=== PATIENT | male | born 1975 | race American Indian/Alaskan Native ===

== ENCOUNTER 2016-10-16 10:51 | Emergency (ER) | payer SELFPAY ==
[2016-10-16 10:51] VITALS: BMI 24.2
[2016-10-16 10:56] VITALS: BP 119/76; PULSE 84; RESP 18; TEMP 98.2; O2SAT 99
[2016-10-16] MEDS ORDERED: Naproxen 550 mg Tab PO STA (11:08)
--- NOTE | 2016-10-16 11:08 | C.PDOC ---
History Of Present Illness 41 yo male, presents with left shoulder pain he has had for "6 months". as per pt, unsure of what provoked injury. pt states had neg xr by pmd. pt states pain resolved, but has now resolved. no fevers, trauma, numbness or other complaints Time Seen by Provider: 10/16/16 10:57 Chief Complaint (Nursing): Upper Extremity Problem/Injury Past Medical History Reviewed: Historical Data, Nursing Documentation, Vital Signs Vital Signs: Last Vital Signs Temp 98.2 F 10/16/16 10:52 Pulse 84 10/16/16 10:52 Resp 18 10/16/16 10:52 BP 119/76 10/16/16 10:52 Pulse Ox 99 10/16/16 11:14 Family History: States: Unknown Family Hx - Social History Hx Tobacco Use: Yes (6 CIG/DAY) Hx Alcohol Use: Yes (SOC) Hx Substance Use: No - Immunization History Hx Tetanus Toxoid Vaccination: No Hx Influenza Vaccination: No Hx Pneumococcal Vaccination: No Review Of Systems Musculoskeletal: Positive for: Shoulder Pain (left) Physical Exam - Physical Exam Appears: Well, No Acute Distress Skin: Normal Color, Warm, Dry Eye(s): bilateral: Normal Inspection, PERRL, EOMI Nose: Normal Throat: Normal Neck: Normal Cardiovascular: Rhythm Regular Respiratory: Normal Breath Sounds Gastrointestinal/Abdominal: Normal Exam Back: Normal Inspection Extremity: Normal ROM, Tenderness ((+)left shoulder ttp, mild), No Deformity, Swelling (minimal) ED Course And Treatment O2 Sat by Pulse Oximetry: 99 Disposition - Disposition Referrals: [facility] [Outside] [facility] [Outside] [facility] [employer] [facility] [Outside] [facility] [Outside] Disposition: HOME/ ROUTINE Disposition Time: 12:00 Condition: STABLE Additional Instructions: please follow up with your doctor. return to er with worsening symptoms or concerns. Prescriptions: Naproxen 500 mg PO BID PRN #14 tab PRN Reason: Pain, Mild (1-3) Instructions: Shoulder Sprain (ED) Forms: Work Excuse - Clinical Impression Clinical Impression: Shoulder pain
[2016-10-16] MEDS ORDERED: Naproxen 550 mg Tab PO ONE (11:12)
--- NOTE | 2016-10-16 15:00 | RAD ---
PROCEDURE: Radiographs of the Left Shoulder HISTORY: shoulder pain No antecedent history of trauma provided. COMPARISON: KeyNo prior. FINDINGS: BONES: Normal. No fracture. JOINTS: Preserved glenohumeral relationship, acromioclavicular degenerative change: Mild. SOFT TISSUES: Normal. OTHER FINDINGS: None. IMPRESSION: No acute findings related to/accounting for the clinical presentation.
== END 2016-10-16 12:08 | disposition home or self-care (01) ==
LOC: C.ER 10:51
DX: M25.512 Pain in left shoulder (principal)

== ENCOUNTER 2018-07-30 20:59 | Emergency (ER) | payer OTHER ==
[2018-07-30 20:59] VITALS: BMI 24.2
[2018-07-30 21:05] VITALS: BP 144/87
--- NOTE | 2018-07-30 21:33 | C.PDOC ---
History Of Present Illness 43 y/o male presents to the ED complaining of right knee pain since waking up. States at work he kneels frequently. No known blunt injury or recent fall. Otherwise patient denies any numbness, paresthesias, or extremity weakness. He is able to bear weight on the right. Time Seen by Provider: 07/30/18 21:10 Chief Complaint (Nursing): Lower Extremity Problem/Injury History Per: Patient History/Exam Limitations: no limitations Onset/Duration Of Symptoms: Hrs Current Symptoms Are (Timing): Still Present Past Medical History Reviewed: Historical Data, Nursing Documentation, Vital Signs Vital Signs: Last Vital Signs Temp 98.1 F 07/30/18 21:03 Pulse 69 07/30/18 21:03 Resp 20 07/30/18 21:03 BP 144/87 07/30/18 21:03 Pulse Ox 98 07/30/18 21:03 - Medical History PMH: No Chronic Diseases Other Surgeries: Right arm surgery Family History: States: Unknown Family Hx - Social History Hx Tobacco Use: Yes (6 CIG/DAY) Hx Alcohol Use: Yes (SOC) Hx Substance Use: No - Immunization History Hx Tetanus Toxoid Vaccination: No Hx Influenza Vaccination: No Hx Pneumococcal Vaccination: No Review Of Systems Except As Marked, All Systems Reviewed And Found Negative. Constitutional: Negative for: Fever, Chills Respiratory: Negative for: Shortness of Breath Gastrointestinal: Negative for: Abdominal Pain Musculoskeletal: Positive for: Leg Pain (right knee) Skin: Negative for: Rash, Lesions Neurological: Negative for: Weakness, Numbness, Incoordination Physical Exam - Physical Exam Appears: Well, Non-toxic, No Acute Distress Skin: Warm, Dry, No Rash Head: Atraumatic, Normacephalic Eye(s): bilateral: Normal Inspection Neck: Normal ROM Chest: Symmetrical Respiratory: No Accessory Muscle Use Extremity: Tenderness (to the lateral right knee cap), No Calf Tenderness, No Deformity, Swelling (to the lateral right knee cap), Other (No erythema or increased warmth) Pulses: Left Dorsalis Pedis: Normal, Right Dorsalis Pedis: Normal Neurological/Psych: Oriented x3, Normal Motor, Normal Sensation Gait: Steady ED Course And Treatment O2 Sat by Pulse Oximetry: 98 (RA) Pulse Ox Interpretation: Normal Progress Note: X-ray taken of right knee. Imaging reviewed, and discussed with patient. Patient is stable for discharge, counseled regarding diagnosis and treatment plan. Disposition - Disposition Referrals: Dung Vlila III, MD [Staff Provider] - Disposition: HOME/ ROUTINE Disposition Time: 22:00 Condition: STABLE Additional Instructions: FOLLOW UP WITH PMD WITHIN 1-2 DAYS. RETURN TO ED IF FEEL WORSE. 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 - Scribe Statement The provider has reviewed the documentation as recorded by the Tyleribgabrielle Payton All medical record entries made by the Tyleribe were at my direction and personally dictated by me. I have reviewed the chart and agree that the record accurately reflects my personal performance of the history, physical exam, medical decision making, and the department course for this patient. I have also personally directed, reviewed, and agree with the discharge instructions and disposition.
[2018-07-30 22:33] VITALS: PULSE 80; RESP 18; TEMP 97.9; O2SAT 100
--- NOTE | 2018-07-31 07:03 | RAD ---
Date of service: 07/30/2018 PROCEDURE: Right Knee Radiographs. HISTORY: atraumatic pain COMPARISON: None. FINDINGS: BONES: Normal. No fracture. JOINTS: Mild medial tibial spine spurring. Patellofemoral joint space-appears narrowed. JOINT EFFUSION: None. OTHER FINDINGS: None. IMPRESSION: No fracture or lytic lesion. Mild degenerative changes
== END 2018-07-30 22:40 | disposition home or self-care (01) ==
LOC: C.ER 20:59
DX: M25.561 Pain in right knee (principal)